=== PATIENT | male | born 1940 | race Caucasian/White ===

== ENCOUNTER → 2023-12-21 | Outpatient (CLI) | payer MEDICARE ==
[2023-12-21 11:05] LABS: African American GFR (CKD) 71 (>60 ml/min/1.73 sqM); Blood Urea Nitrogen 20 mg/dL (9-20); Non-African American GFR(CKD) 61 (>60 ml/min/1.73 sqM)
--- NOTE | 2023-12-21 13:26 | CT ---
CT urogram HISTORY: Gross hematuria. COMPARISON: None. TECHNIQUE: Multiple axial images are obtained through the abdomen and pelvis before and after the une ventful administration of nonionic IV contrast material. Delayed postcontrast images were obtained. Coronal and sagittal reconstructions were generated and re viewed. FINDINGS: There are marked emphysematous changes in the lung bases. There is a focal area of traction bronchiec tasis in the right lung base medially. There are scattered pulmonary nodules the largest of which is 8.[address] thorax for further evaluation of the lung harvey for pulmonary nodules/masses is recommend ed. On the pre-IV contrast images, there is a 5.3 mm nonobstructing calcification in the left kidney. The re is a large left cortical cyst with a single cyst thinly walled calcified septation, Bosniak class II cyst. Following contrast menstruation, there are no filling defects within the pelvicalyceal syste ms and ureters bilaterally. There are multiple filling defects within the dependent portion of the ur inary bladder which could represent blood clots although bladder mass cannot be excluded. The gallbladder is normal and there is no distention or biliary ductal dilatation. There are no focal masses within the liver, pancreas, spleen or adrenal glands and there is no organo megaly. Kidneys excrete contrast promptly and symmetrically and there is no solid renal mass, hydronephrosis or filling defect within the renal collecting systems, ureters or urinary bladder. The bowel loops are normal in caliber and there is no dilatation or obstruction. No inflammatory pitts ges are identified in the bowel wall or mesentery. There is no free intraperitoneal air or fluid. There is moderate prostatic hypertrophy. There is a moderate amount of stool within the rectum. The osseous structures are intact. IMPRESSION: 1. Nonobstructing 5.2 mm left renal check this. 2. 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 3. No filling defects within the pelvicalyceal systems or ureters. 4. Filling defects within the dependent portion of the urinary bladder which could represent blood cl ots although bladder masses cannot be excluded. 5. Moderate prostatic hypertrophy 6 marked emphysematous changes in the lung bases and scattered pulm onary nodules largest of which is 8 mm in the right lower lobe. CT of the thorax is recommended for c omprehensive evaluation of the entire lung harvey.
== END | disposition home or self-care (01) ==
LOC: RADCTMAIN 10:16
PROVIDERS: ATTEND Urology
DX: N28.1 Cyst of kidney, acquired (principal); N40.0 Benign prostatic hyperplasia without lower urinary tract symptoms; J43.9 Emphysema, unspecified; R91.8 Other nonspecific abnormal finding of lung field; R31.0 Gross hematuria
CPT/HCPCS: 82565; 84520; 74178; 36415; 74400; Q9967